=== PATIENT | female | born 1950 | race Caucasian/White ===

== ENCOUNTER → 2020-02-10 | Outpatient (CLI) | payer MEDICAID ==
[~2020-02-10] MED LIST: ATOR80TA59 PO; CALC-190 PO; FAMO1TAB11 PO; GABA-843 PO; LEVO50TA5 PO
== END ==
LOC: M LABSMTC 11:29
PROVIDERS: ATTEND Anesthesiology
DX: Z01.812 Encounter for preprocedural laboratory examination (principal); Z20.828 Contact with and (suspected) exposure to other viral communicable diseases
CPT/HCPCS: C9803; U0003

== ENCOUNTER 2020-02-15 06:05 | Day surgery (SDC) | payer MEDICARE, MEDICAID ==
[~2020-02-15] VITALS: Ht 167.6 cm; Wt 76.2 kg
[2020-02-15] MEDS ORDERED: GABA-843 PO (06:27)
[2020-02-15] MEDS ORDERED: FAMO1TAB11 PO (06:27)
[2020-02-15] MEDS ORDERED: CALC-190 PO (06:27)
[2020-02-15] MEDS ORDERED: LEVO50TA5 PO (06:27)
[2020-02-15] MEDS ORDERED: ATOR80TA59 PO (06:27)
[2020-02-15] MEDS ORDERED: LR 1,000 ML IV ONE (07:00)
[2020-02-15] MEDS ORDERED: LIDOCAINE 2% 100MG/5ML SDV (FOR ANES.) As Ordered ONE ×2 (07:18→08:18)
[2020-02-15] MEDS ORDERED: ROCURONIUM BROMIDE 50 MG/5 ML VIAL As Ordered ONE (07:18)
[2020-02-15] MEDS ORDERED: propofoL 200 MG/20 ML VIAL As Ordered ONE (07:18)
[2020-02-15] MEDS ORDERED: ONDANSETRON 4MG/2ML VIAL As Ordered ONE (07:18)
[2020-02-15] MEDS ORDERED: SUGAMMADEX SODIUM 500 MG/5 ML VIAL (BRIDION) As Ordered ONE ×2 (07:18→09:03)
[2020-02-15] MEDS ORDERED: dexameTHASONE 4 MG/ML 1ML VIAL (J1100 PER 1MG) As Ordered ONE (07:19)
[2020-02-15] MEDS ORDERED: KETOROLAC 60MG 2ML VIAL As Ordered ONE (07:19)
[2020-02-15] MEDS ORDERED: ACETAMINOPHEN 1000MG 100ML IV BTL (OFIRMEV) (J0131 PER 10MG) As Ordered ONE (07:19)
[2020-02-15] MEDS ORDERED: HYDROmorphone HCL 2 MG/ML 1ML VIAL (J1170) As Ordered ONE (07:20)
[2020-02-15] MEDS ORDERED: fentaNYL 100 MCG/2 ML INJECTION (J3010) As Ordered ONE (07:20)
[2020-02-15] MEDS ORDERED: MIDAZOLAM INJ 2MG/2ML VIAL (J2250 PER 1MG) As Ordered ONE (07:20)
[2020-02-15] MEDS ORDERED: propofoL 500 MG/50 ML VIAL As Ordered ONE (07:29)
[2020-02-15] MEDS ORDERED: BUPIVACAINE HCL 0.5% 30 ML VIAL As Ordered ONE (07:50)
[2020-02-15 10:20] VITALS: BP 118/62
[2020-02-15] MEDS ORDERED: LR 1,000 ML IV SCH (10:30)
[2020-02-15] MEDS ORDERED: PERCOCET 5MG/325MG TAB PO PRN (10:30)
[2020-02-15] MEDS ORDERED: ONDANSETRON 4MG/2ML VIAL IV PRN (10:30)
[2020-02-15] MEDS ORDERED: fentaNYL 100 MCG/2 ML INJECTION (J3010) IV PRN (10:30)
--- NOTE | 2020-03-07 15:23 | RO ---
DATE OF OPERATION: 02/15/2020 PREOPERATIVE DIAGNOSIS AND INDICATIONS FOR SURGERY: The patient had labial dysplasia and failed Aldara. POSTOPERATIVE DIAGNOSES: * The patient had labial dysplasia and failed Aldara. * Perianal lesions. PROCEDURE: Partial vulvectomy with removal of perianal lesions. SURGEON: Mercedes Muñoz MD SUPERVISOR LATHING: None. ANESTHESIA: MAC and local. SPECIMENS: Partial vulvectomy specimen and the perianal lesions. BRIEF DESCRIPTION OF PROCEDURE AND FINDINGS: Teresa was brought to the operating room where sufficient sedation was given and she was prepped, draped, and positioned in the normal fashion. Then, 0.5% Marcaine was injected. We injected the lesions separately. She had a broad carpet over the clitoral escamilla and extending to the right labia minora and majora to fdc back in the vulva. She also had a small area of carpet along the anterior left, but there was fortunately a little bridge of more normal tissue there. This space on the left did extend to the clitoral escamilla, but there was a little bit of normal tissue by appearance over the clitoral escamilla before it turned into that, and then went on to the labia minora and majora anteriorly with dysplastic-appearing lesions. She then had, on the left side, a gap of more normal-appearing skin, and then an ovoid, approximately 2-cm x 1-cm pigmented lesion. Then, posteriorly, under anesthesia, it was possible to see that there were more than a dozen pedunculated perianal lesions that had not been as evident in the office with the patient awake. The laxity of that anesthesia, sedation, showed these lesions were present and that it was not just hemorrhoid tags. So, it was clear that that needed to be removed as well. We went ahead and started with the pigmented ovoid lesion, injecting it with 0.5% Marcaine, and then injected some of the perianal lesions. We then started with those. Some were in clusters that had to be excised and 3-0 Monocryl was used to create hemostasis. Some of them were pedunculated on small pedicles and because of there were so many, we went ahead and just excised them on the pedicle and then applied pressure. There were some bridging the gaps between the pigmented lesion and the perianal area. We went ahead and treated those in the same way. If they were clustered sufficiently that we needed to take a bigger area, we went ahead and sutured that with 3-0 Monocryl, but if we could, we just removed then. Then, we put gauze them so we could hold pressure on that for the remainder of the case to see if we could minimize the number of stitches around the patient's anus. Then, I went back up to that left-sided pigmented lesion and removed it in an elliptical full-thickness incision. Full-thickness of the skin was taken into the SQ tissue. Then, we had to do a deep closure of 2-0 Vicryl to reapproximate this and then close the skin on that with a subcuticular stitch of 3-0 Monocryl. Good approximation and hemostasis was achieved. We then went ahead and injected for the right side large excision and waited to let that injection set up. Then, once the tissue stabilized somewhat by assistance by the scrub nurse and with careful dissection, we went around these tissues salvaging that tiny area of the clitoral escamilla and then a portion of the medial aspect of the left labial minora, and then extending out to the majora, but not fully needing to take all of the majora. Again, that went past 9:00 o'clock on the right side. We excised the lesions and that area of carpeting appearance of dysplastic lesions, and again, this was full-thickness excision. Then, multiple deeper interrupted stitches of 2-0 Vicryl were necessary, both for hemostasis and for approximation of the tissues, following which we were able to then, with segments of subcuticular stitching, reapproximate the skin with short runs of subcuticular stitching to reapproximate and recreate those tissues. We went ahead and injected the right side and again, waited for that to set up. So, when we were part way done sewing on the left, we went ahead and injected on the right, and let that set up while we completed the left-sided sewing. Then, we excised the area of lesions on the right as well, and again, did a deep layer closure of 2-0 in order to bring those tissues back together to take the tension off of the skin closure, and then closed the skin with the 3-0 Monocryl. Following the completion of those excisions, I could not see any more lesions. We removed the packed gauze from the perianal area and were able to see that we did have good hemostasis there, so we did not need to do any more stitching there. The bladder was emptied during the case. With the wounds closed and good hemostasis achieved, the procedure was then ended. Estimated blood loss for the procedures was about 10 mL. Fluid replacement was with crystalloid. As already noted, specimen was the partial vulvectomy specimen and the perianal lesions. As already noted, a significant portion of the vulva was excised and the patient was aware of wound care, as we had already discussed that at length with her preoperatively. The procedure was ended. COMPLICATIONS: None. CONDITION AND DISPOSITION: Teresa tolerated the procedure well and was recovering in the recovery room in good condition. RAHCEL
== END 2020-02-15 10:57 | disposition home or self-care (01) ==
LOC: M SDC 06:05
PROVIDERS: ATTEND Obstetrics & Gynecology
DX: N90.3 Dysplasia of vulva, unspecified (principal); K62.89 Other specified diseases of anus and rectum
CPT/HCPCS: 46922; 56620; 88309; J0131; J1100; J1885; J2250; J2405; J3010

== ENCOUNTER → 2020-12-02 | Outpatient (CLI) | payer MEDICARE, MEDICAID ==
[~2020-12-02] MED LIST changes: +GABA-282 PO; -GABA-843 PO
--- NOTE | 2020-12-02 13:59 | REP ---
INDICATION: LT LEG PAIN SWELLING ? DVT. COMPARISON: None. TECHNIQUE: Left {lower extremity duplex venous scanning is performed from the groin to the ankle level. FINDINGS: The deep veins are anechoic and fully compressible from the groin to the popliteal fossa in the left lower extremity. Color flow imaging is homogeneous. Spectral Doppler interrogation demonstrates intact respiratory variation in flow and normal manual augmentation of flow. There is no evidence of deep vein thrombosis above the knee. There is no evidence of DVT in the visualized calf veins. Doppler interrogation of the contralateral common femoral vein shows normal symmetric respiratory phasicity. IMPRESSION: No evidence of DVT in the left lower extremity femoropopliteal veins. No DVT in the visible portions of the calf veins. <Electronically signed by Mak Martinez > 12/02/20 [id number]
== END ==
LOC: M RAD 11:55
PROVIDERS: ATTEND Nurse Practitioner Family
DX: R60.9 Edema, unspecified (principal)

== ENCOUNTER 2020-12-29 18:58 | Emergency (ER) | payer MEDICARE, MEDICAID ==
[~2020-12-29] VITALS: Ht 170.2 cm; Wt 78.2 kg
[2020-12-29] MEDS ORDERED: TIMO0.5S29 OU (19:15)
[2020-12-29] MEDS ORDERED: FENO134C PO (19:15)
[2020-12-29] MEDS ORDERED: ASPI81CH33 PO (19:15)
--- NOTE | 2020-12-29 22:19 | ECGEPIP ---
[facility] - ED Test Date: 2020-12-29 Pat Name: ANTONIA MANZO Department: Room: - Gender: Female [employer]: MIGUEL ANGEL : 1950 Requested By: JEFFREY Villegas Order Number: [id number] Reading MD: Linda Alberts Measurements Intervals Tatamy Rate: 54 P: 51 FL: 166 QRS: 51 QRSD: 86 T: 51 QT: 420 QTc: 398 Interpretive Statements Sinus bradycardia No prior Electronically Signed on 12-29-2020 22:19:08 EDT by Linda Alberts
[2020-12-29] MEDS ORDERED: GI COCKTAIL 50ML BTL(HYOSCYAMINE/MAALOX/LIDOCAINE VISCOUS)(1:3:1) PO ONE (22:20)
[2020-12-29 22:50] LABS: BASO % 0.4 % (0.0-1.0); EOS # 0.1 10^3/uL (0.0-0.5); EOS % 0.5 % (0.0-3.0); HEMATOCRIT 44.2 % (36.0-47.0); HEMOGLOBIN 14.2 g/dl (12.0-15.5); LYMPH # 1.8 10^3/uL (1.5-5.0); LYMPH % 16.4 % (24.0-44.0); MEAN CORPUSCULAR HEMOGLOBIN 31.8 pg (27.0-33.0); MEAN CORPUSCULAR HGB CONC 32.1 g/dl (32.0-36.5); MEAN CORPUSCULAR VOLUME 99.1 fl (80.0-96.0); MONO # 0.6 10^3/uL (0.0-0.8); MONO % 5.5 % (2.0-8.0); NEUTROPHILS # 8.3 10^3/uL (1.5-8.5); NEUTROPHILS % 76.8 % (36.0-66.0); PLATELET COUNT, AUTOMATED 313 10^3/uL (150-450); RED BLOOD COUNT 4.46 10^6/uL (4.00-5.40); WHITE BLOOD COUNT 10.7 10^3/uL (4.0-10.0)
--- NOTE | 2020-12-29 23:17 | REPVR ---
PROCEDURE INFORMATION: Exam: XR Abdomen Exam date and time: 12/29/2020 10:34 PM Age: 70 years old Clinical indication: Abdominal pain; Generalized; Additional info: Umbilical abd pain, constipation, gas TECHNIQUE: Imaging protocol: XR of the abdomen. Views: Frontal supine view of the abdomen. 1 View. COMPARISON: No relevant prior studies available. FINDINGS: Gastrointestinal tract: There is a mild amount of stool in the colon. No dilated loops of bowel are noted. Intraperitoneal space: There are calcifications in the right upper quadrant of the abdomen, which may be located in the gallbladder. Vasculature: Incidental note is made of small round calcifications in the pelvis, which are compatible with phleboliths. Bones/joints: There are degenerative changes involving the lumbar spine. 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 IMPRESSION: 1. Calcifications in the right upper quadrant of the abdomen, which may be located in the gallbladder. 2. Mild amount of stool in the colon. No radiographic evidence for a bowel obstruction. Electronically signed by: Demond Christiansen On 12/29/2020 23:17:05 PM
[2020-12-29 23:37] LABS: ALBUMIN 4.3 GM/DL (3.2-5.2); ALT/SGPT 60 U/L (12-78); BILIRUBIN,DIRECT < 0.1 MG/DL (0.0-0.2); BILIRUBIN,TOTAL 0.3 MG/DL (0.2-1.0); LIPASE 323 U/L (73-393); TOTAL PROTEIN 7.9 GM/DL (6.4-8.2)
[2020-12-30] MEDS ORDERED: OMEP-218 PO (00:04)
[2020-12-30 00:55] VITALS: BP 140/65
== END 2020-12-30 00:56 | disposition home or self-care (01) ==
LOC: M ED 18:58
DX: R10.9 Unspecified abdominal pain (principal); E11.9 Type 2 diabetes mellitus without complications; E03.9 Hypothyroidism, unspecified; E78.5 Hyperlipidemia, unspecified; Z79.899 Other long term (current) drug therapy; Z79.890 Hormone replacement therapy; Z79.82 Long term (current) use of aspirin; F17.210 Nicotine dependence, cigarettes, uncomplicated

== ENCOUNTER → 2021-03-14 | Outpatient (CLI) | payer MEDICARE, MEDICAID ==
[~2021-03-14] MED LIST changes: +ASPI81CH33 PO; +FENO134C PO; +GASTROGRAFIN SOLUTION 30ML (Q9963) As Ordered ONE; +ISOVUE-370 76% 100ML VIAL As Ordered ONE; +OMEP-218 PO; +TIMO0.5S29 OU
--- NOTE | 2021-03-14 15:44 | REP ---
INDICATION: LOCIALIZED SWELLING LUMP IN LOWER LIMB. COMPARISON: None. TECHNIQUE: Standard helical technique after the intravenous administration of 100 cc Isovue 370 and oral bowel preparatory contrast administration. FINDINGS: The lung bases are clear. There are numerous incidental bilateral calcified granulomas. The liver, spleen, pancreas, adrenal glands, and kidneys are within normal limits. There is an incidental 5 mm sized focal area of decreased density in the inferior pole of the left kidney likely a tiny renal cortical cysts but too small for CT characterization. There is cholelithiasis. The abdominal aorta and para-aortic regions are within normal limits. The bowel loops and the mesenteries are within normal limits. There is no evidence of a mass or adenopathy. There is no evidence of free fluid or free air. Bone window technique throughout the examination shows the osseous structures to be within normal limits. IMPRESSION: 1. Cholelithiasis 2. The examination is otherwise unremarkable. <Electronically signed by Brian Hooper > 03/14/21 [id number]
== END ==
LOC: M RAD 13:30
PROVIDERS: ATTEND Nurse Practitioner Family
DX: K80.20 Calculus of gallbladder without cholecystitis without obstruction (principal); R22.42 Localized swelling, mass and lump, left lower limb
CPT/HCPCS: 74177; Q9963; Q9967

== ENCOUNTER → 2022-03-30 | Outpatient (CLI) | payer MEDICARE, MEDICAID ==
[~2022-03-30] MED LIST changes: -FENO134C PO; +FENO134C16 PO; -GASTROGRAFIN SOLUTION 30ML (Q9963) As Ordered ONE; -ISOVUE-370 76% 100ML VIAL As Ordered ONE; +OMEP-173 PO; -OMEP-218 PO
== END ==
LOC: M RAD 13:38
DX: Z87.891 Personal history of nicotine dependence (principal)

== ENCOUNTER → 2022-04-24 | Outpatient (CLI) | payer MEDICARE, MEDICAID ==
[~2022-04-24] MED LIST changes: -FENO134C16 PO; +FENO134C20 PO
== END ==
LOC: M WHC 11:31
PROVIDERS: ATTEND Physician Assistant Medical
DX: N95.0 Postmenopausal bleeding (principal)

== ENCOUNTER → 2022-05-20 | Outpatient (CLI) | payer MEDICARE, MEDICAID ==
[~2022-05-20] MED LIST changes: +PROHANCE 279.3MG/ML 5ML VIAL As Ordered ONE
== END ==
LOC: M RAD 08:36
PROVIDERS: ATTEND Physician Assistant Medical
DX: N95.0 Postmenopausal bleeding (principal); R19.09 Other intra-abdominal and pelvic swelling, mass and lump; Z53.9 Procedure and treatment not carried out, unspecified reason

== ENCOUNTER 2022-09-09 10:49 | Emergency (ER) | payer MEDICARE, MEDICAID ==
[~2022-09-09] VITALS: Ht 170.2 cm; Wt 77.7 kg
[~2022-09-09 10:49] MED LIST changes: -PROHANCE 279.3MG/ML 5ML VIAL As Ordered ONE
[2022-09-09] MEDS ORDERED: XALA0.007 OU (11:04)
[2022-09-09] MEDS ORDERED: NOXI1TAB PO (11:04)
[2022-09-09] MEDS ORDERED: AMIT50TA (11:04)
[2022-09-09] MEDS ORDERED: PRED10TA2 PO (13:42)
[2022-09-09 14:05] VITALS: BP 118/68
== END 2022-09-09 14:08 | disposition home or self-care (01) ==
LOC: M ED 10:49
DX: M51.16 Intervertebral disc disorders with radiculopathy, lumbar region (principal); E11.9 Type 2 diabetes mellitus without complications; E78.5 Hyperlipidemia, unspecified; I73.9 Peripheral vascular disease, unspecified; K21.9 Gastro-esophageal reflux disease without esophagitis; Z79.82 Long term (current) use of aspirin; Z79.899 Other long term (current) drug therapy

== ENCOUNTER 2022-10-17 01:24 | Emergency (ER) | payer MEDICARE, MEDICAID ==
[~2022-10-17] VITALS: Ht 167.6 cm; Wt 81.8 kg
[~2022-10-17 01:24] MED LIST changes: +AMIT50TA; +NOXI1TAB PO; +PRED10TA2 PO; +TIMO0.5S20 OU; -TIMO0.5S29 OU; +XALA0.007 OU
[2022-10-17 02:07] LABS: BASO % 0.4 % (0.0-1.0); EOS % 0.4 % (0.0-3.0); HEMATOCRIT 39.6 % (36.0-47.0); HEMOGLOBIN 12.7 g/dl (12.0-15.5); MEAN CORPUSCULAR HEMOGLOBIN 31.1 pg (27.0-33.0); MEAN CORPUSCULAR HGB CONC 32.1 g/dl (32.0-36.5); MEAN CORPUSCULAR VOLUME 96.8 fl (80.0-96.0); MONO # 0.2 10^3/uL (0.0-0.8); NEUTROPHILS # 5.9 10^3/uL (1.5-8.5); NEUTROPHILS % 81.8 % (36.0-66.0); PLATELET COUNT, AUTOMATED 335 10^3/uL (150-450); RED BLOOD COUNT 4.09 10^6/uL (4.00-5.40); WHITE BLOOD COUNT 7.3 10^3/uL (4.0-10.0)
[2022-10-17 02:39] LABS: LIPASE 36 U/L (12-53)
[2022-10-17 02:41] LABS: ALKALINE PHOSPHATASE 54 U/L (46-116); ALT/SGPT 42 U/L (7.0-40); AST/SGOT 30 U/L (<34); BILIRUBIN,DIRECT < 0.1 MG/DL (<0.4); BILIRUBIN,TOTAL 0.2 MG/DL (0.3-1.2); BLOOD UREA NITROGEN 15 MG/DL (9-23); CALCIUM LEVEL 8.5 MG/DL (8.3-10.6); CARBON DIOXIDE LEVEL 30 MMOL/L (20-31); CHLORIDE LEVEL 103 MMOL/L (98-107); CREATININE FOR GFR 0.94 MG/DL (0.55-1.30); GLOMERULAR FILTRATION RATE > 60.0 (>39); GLUCOSE, FASTING 163 MG/DL (74-106); POTASSIUM SERUM 4.5 MMOL/L (3.5-5.1); SODIUM LEVEL 136 MMOL/L (136-145)
[2022-10-17 02:45] LABS: CK-MB VALUE MASS < 1.0 NG/ML (<3.6)
[2022-10-17 02:46] LABS: CPK CREATINE PHOSPHOKINASE 74 U/L (34-145); MB/CK RELATIVE INDEX 1.35 (< OR =4)
[2022-10-17 03:45] LABS: CK-MB VALUE MASS < 1.0 NG/ML (<3.6)
[2022-10-17 03:47] LABS: CPK CREATINE PHOSPHOKINASE 72 U/L (34-145); MB/CK RELATIVE INDEX 1.38 (< OR =4)
[2022-10-17] MEDS ORDERED: ONDANSETRON 4MG 2ML VIAL IV ONE (04:20)
[2022-10-17] MEDS ORDERED: MORPHINE 4 MG/ML 1ML VIAL IV PRN (04:20)
[2022-10-17] MEDS ORDERED: ISOVUE-370 76% 100ML VIAL As Ordered ONE (04:43)
[2022-10-17] MEDS ORDERED: REGL5TAB2 PO (07:24)
[2022-10-17] MEDS ORDERED: CARA1TAB6 PO (07:24)
[2022-10-17 07:27] VITALS: BP 160/78
== END 2022-10-17 07:37 | disposition home or self-care (01) ==
LOC: M ED 01:24
DX: K21.9 Gastro-esophageal reflux disease without esophagitis (principal); K31.84 Gastroparesis; M06.9 Rheumatoid arthritis, unspecified; Z79.899 Other long term (current) drug therapy; Z79.82 Long term (current) use of aspirin; Z79.52 Long term (current) use of systemic steroids
CPT/HCPCS: 74177; 80048; 80076; 82550; 82553; 83690; 84484; 85025; 93005; 96365; 96366; 96375; 99284; J2405; Q9967

== ENCOUNTER → 2023-03-29 | Outpatient (CLI) | payer MEDICARE, MEDICAID ==
[~2023-03-29] MED LIST changes: +CARA1TAB6 PO; +PROHANCE 279.3MG/ML 15ML VIAL As Ordered ONE; +PROHANCE 279.3MG/ML 5ML VIAL As Ordered ONE; +REGL5TAB2 PO
== END ==
LOC: M RAD 08:21
PROVIDERS: ATTEND Physician Assistant Medical
DX: N95.0 Postmenopausal bleeding (principal); R19.09 Other intra-abdominal and pelvic swelling, mass and lump
CPT/HCPCS: 72197; A9576

== ENCOUNTER → 2023-10-21 | Outpatient (CLI) | payer MEDICARE, MEDICAID ==
[~2023-10-21] MED LIST changes: -AMIT50TA; +AMIT50TA PO; -PROHANCE 279.3MG/ML 15ML VIAL As Ordered ONE; -PROHANCE 279.3MG/ML 5ML VIAL As Ordered ONE
== END ==
LOC: M RAD 10:55
PROVIDERS: ATTEND Registered Nurse
DX: Z01.818 Encounter for other preprocedural examination (principal); I45.10 Unspecified right bundle-branch block

== ENCOUNTER → 2023-12-21 | Outpatient (CLI) | payer MEDICARE, MEDICAID | LOC: M RAD 08:37 | PROVIDERS: ATTEND Registered Nurse | DX: Z12.2 Encounter for screening for malignant neoplasm of respiratory organs (principal); Z87.891 Personal history of nicotine dependence ==

== ENCOUNTER → 2024-12-25 | Outpatient (CLI) | payer MEDICARE, MEDICAID ==
[~2024-12-25] MED LIST changes: +GABA-1172 PO; -GABA-282 PO
== END ==
LOC: M RAD 13:27
PROVIDERS: ATTEND Registered Nurse
DX: Z12.2 Encounter for screening for malignant neoplasm of respiratory organs (principal); Z87.891 Personal history of nicotine dependence

== ENCOUNTER → 2025-05-16 | Outpatient (CLI) | payer MEDICARE, MEDICAID | LOC: M CARPUL 11:04 | PROVIDERS: ATTEND Internal Medicine Cardiovascular Disease | DX: I25.10 Atherosclerotic heart disease of native coronary artery without angina pectoris (principal); I25.84 Coronary atherosclerosis due to calcified coronary lesion; Z79.899 Other long term (current) drug therapy ==